=== PATIENT | male | born 1995 | race Hispanic/Latino ===

== ENCOUNTER 2023-01-02 00:53 | Emergency (ER) | payer BC ==
[~2023-01-02] VITALS: Ht 177.8 cm; Wt 121.1 kg
[~2023-01-02 00:53] MED LIST: APRODINE TABLE1 EACH; LISINOPRIL10 MG PO
[2023-01-02] MEDS ORDERED: AZITHROMYCIN250 MG PO (01:52)
[2023-01-02] MEDS ORDERED: VENTOLIN HFA18 GM INH (01:52)
[2023-01-02] MEDS ORDERED: PREDNISONE20 MG PO (01:52)
== END 2023-01-02 01:58 | disposition home or self-care (01) ==
LOC: ER 01:41
DX: R05.9 Cough, unspecified (principal); U07.1 COVID-19; R53.81 Other malaise
CPT/HCPCS: 83518; 87070; 99283; U0002